=== PATIENT | male | born 1950 | race Caucasian/White ===

== ENCOUNTER 2016-11-05 16:37 | Inpatient (IN) | payer MEDICAID, MEDICARE ==
[~2016-11-05] VITALS: Ht 182.9 cm; Wt 66.8 kg
[~2016-11-05 16:37] MED LIST: ALBU8.5H2 INHALATION; ATOR20TA PO; FURO-128 PO; LISI-608 PO; MULT-1018 PO; OMEG500C PO; OXYC1TAB24 PO; PRE20 PO; REGO40TA PO; SILV20CR4 TP; [UNRECOGNIZED DRUG - OTHER] PO
[2016-11-05 16:52] VITALS: BP 142/54; PULSE 110; RESP 24; O2SAT 97
[2016-11-05] MEDS ORDERED: Ondansetron 2 mg/mL 2 mL Inj ONE (18:29)
[2016-11-05] MEDS: HYDROmorphone 0.5 mg/0.5 mL iSecure Syringe IVPUSH PRN ×2 (18:34→19:30)
[2016-11-05 18:39] LABS: INR 1.3 ratio
[2016-11-05 18:46] LABS: Magnesium 1.8 mg/dL (1.6-2.6)
[2016-11-05 18:51] LABS: Mean Corpuscular Volume 94.1 fL (81-100)
[2016-11-05 18:57] LABS: Platelet Count 7 bil/L (150-400)
[2016-11-05] MEDS ORDERED: Dextrose 10% 250 ML in IV Bag 1 EACH IV ONE ×2 (19:00→19:45)
[2016-11-05 19:04] LABS: BASOPHILS % (AUTO) 0 % (0-3); EOSINOPHILS % (AUTO) 0 % (0-5); MONOCYTES % (AUTO) 0 % (4-12); NEUTROPHILS % (AUTO) 64 % (40-74)
[2016-11-05] MEDS ORDERED: Pantoprazole Inj 80 MG, Pharmacy To Mix 1 EA in 0.9% Sodium Chloride 80 ML IV ONE ×2 (19:05)
[2016-11-05] MEDS ORDERED: Pantoprazole 4 mg/mL 10 mL Inj IVPUSH ONE (19:05)
[2016-11-05] MEDS ORDERED: Dextrose 5% 0.9% NaCl 1,000 ML IV SCH ×2 (19:05→23:30)
[2016-11-05] MEDS ORDERED: Octreotide Inj 500 MCG in 0.9% Sodium Chloride 100 ML IV ONE (19:25)
[2016-11-05] MEDS ORDERED: cefTRIAXone Inj 2,000 MG in Dextrose 5% Minibag Plus 50 ML IV ONE (20:00)
--- NOTE | 2016-11-05 20:23 | ED.REPORT ---
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 Patient is accompanied by his daughter Cheyanne, his municipal firefighter. She states that she took the patient to urgent care this morning and then to see urologist this morning as his argueta catheter was not draining urine since last night. Dr. Fields performed cystourethroscopy that revealed non-distended bladder. He was referred to the ED. Patient is very weak to carry on a conversation, but he stated that he has severe diffuse abdominal pain since this afternoon and that he started spitting out blood since admission to ER. He denies hematemesis, hematochezia, melena. He reports shortness of breath and severe weakness. Patient's oncologist is Dr. Olson. From his last note on 10/29/16, patient has widespread metastasis involving left scapular soft tissue, right anterolateral 7th rib, T10 through L2 spine, left 11th rib, and extensive liver involvement. He has had a week of chemotherapy with Nursing Notes Stated Complaint: ABDOMINAL PAIN Chief Complaint: Male Abdominal Pain Nursing Notes Reviewed: Yes Allergies: Coded Allergies: No Known Allergies (Unverified , 11/05/16) Scheduled ([nutra blast supp]) 1 DOSE PO QAM Atorvastatin (Lipitor) 20 Mg Tablet 10 MG PO QAM Furosemide (Lasix) 40 Mg Tablet 40 MG PO QAM Multivitamin (Multi Vitamin Daily) 1 Each Tablet 1 EACH PO QAM [place]-3 Fatty Acids (Fish Oil) 500 Mg Capsule.dr 500 MG PO QAM Prednisone (PredniSONE) 20 Mg Tablet 40 MG PO QAM Regorafenib (Stivarga) 40 Mg Tablet 160 MG PO DIRECTED take 160mg tablet by mouth daily for the first 21 days of 28 days Silver Sulfadiazine (Silvadene) 20 Gm Cream..g. 1 APPLIC TP Q48H TO FEET Tamsulosin ER (Tamsulosin ER) 0.4 Mg Cap.er.24h 0.4 MG PO QAM oxyCODONE-Acetaminophen 5-325 mg (oxyCODONE-Acetaminophen 5-325 mg) 1 Each Tablet 1 TAB PO Q4H Scheduled PRN Albuterol HFA (Proair HFA) 8.5 Gm Hfa.aer.ad 2 PUFFS INHALATION Q4H PRN PRN For Shortness of Breath General Time Seen by MD: 18:22 Chief Complaint Abdominal pain Hx Obtained From: Patient, Daughter Sudden in Onset?: Yes Onset Occurred: 5 - 8 hours ago Context of Onset: Other (pt is on Regorafenib for stage IV hepatocellular carcinoma) Symptom Duration: Since onset Progression since Onset: Constant Location: : Diffuse Quality: Painful Radiation: : Does not radiate Severity: Current: Severe Severity: Maximum: Severe Recent Healthcare: Recent doctor visit (urology, this morning, seen by Dr. Fields) Risk Factors )( AAA Risk Stratification Hypertension Smoking Risk factors reviewed CAD Risk Stratification Hypertension Smoking Risk factors reviewed Past Medical History Past Medical History Notes: Hypertension Hepatocellular carcinoma, stage IV, with widespread metastasis Smoking History Current Every Day Smoker Social History Alcohol Use: In recovery Drug Use: THC Other Social History: , Lives with children (Daughter: Cheyanne Crowley) Ambulatory Status Walker Review of Systems Constitutional: Reports: Fatigue, Malaise, Weakness - generalized, Denies: Fever Respiratory: Reports: Dyspnea on exertion, Prod cough, bloody, Denies: Wheezing Cardiovascular: Reports: Edema, Denies: Chest pain, Syncope GI: Reports: Abdominal pain, Anorexia, Nausea, Denies: Bloody/tarry stool, Dysphagia, Hematemesis, Hematochezia, Melena, Vomiting Male: Reports Urination decreased Musculoskeletal: Reports: Extremity swelling Physical Exam Initial Vital Signs Vital Signs (First) Date Time Temp Pulse Resp B/P Pulse Ox O2 Delivery O2 Flow Rate FiO2 11/05/16 16:52 36.1 110 24 142/54 97 Room Air Initial VS: Reviewed, Vital signs abnormal (Pulse 110) Alertness: Positive: Confused Appearance / Presentation: Positive: Appears older than age, Cachectic, Frail, In pain, Toxic appearing, Uncomfortable Resp Distress / Stridor: Positive: Speaks phrases Diminished Breath Sounds: Positive: Decreased bilateral Cardiovascular: Regular rhythm Heart Rate / Rhythm: Positive: Tachycardia Lower Ext Edema: Positive: Ankle, Bilateral 3+, Pitting Tenderness/Guarding/Rebound: Positive: Tender diffuse Bowel Sounds / Distention: Positive: Bowel sounds hypoactive, Distention mild Head / Eyes: Atraumatic, Normocephalic, PERRL Conjunctiva / Sclera: Positive: Icteric Mouth: Positive: Mucous membranes dry Color / Condition: Positive: Jaundice present Trauma / Burn / Environmental: Positive: Ecchymosis (upper chest wall (new); bilateral upper extremities (chronic)) Argueta catheter in place PICC in place- right upper arm Interpretation & Diagnostics Lab Results Interpretation Result Diagram: 11/05/16 2315 11/05/16 2315 Test 11/05/16 18:15 11/05/16 19:33 Metamyelocytes % 2% (0-0) Prothrombin Time 14.0sec (8.1-12.5) Prothromb Time International Ratio 1.30ratio Magnesium Level 1.8mg/dL (1.6-2.6) Ammonia 137ug/dL (18-53) Hold Jeter Top Tube Received (Received) CBC Interpretation Platelets low (7) BMP / CMP Interpretation Na low (127), K+ elevated (5.8), Glucose low (28), BUN elevated (93), Creatinine elevated (3.09), ALT (SGPT) elevated (433), AST (SGOT) elevated (573) , Total bilirubin elevated (8.9) Re-Eval/Medical Decision Med Decision/Clinical Course In summary, this is a very critical, 66 year old male with h/o stage IV hepatocellular carcinoma with widespread metastasis who presents to ED in acute renal failure, with severe thrombocytopenia, hypoglycemia and possible upper GI bleeding. Gastroenterology, Dr. Haddad, oncology, Dr. Trevizo, and urology, Dr. Fields consulted. Oncology and GI will see the patient in the morning. Patient has been started on pantoprazole and octreotide drip, dextrose and rocephine IV. Platelets ordered. Patient has been discussed with night hospitalist, Dr. Medina. Patient will be admitted to ICU for further management and treatment. Source of Hx: Old records, Crown Perforator Operator Consultation : Referral / Consult Name: Braden Medina MD Consulted With: Hospitalist Electrical Systems Designer: Will see patient, Agrees with eval, Agrees with plan, Accepts admit Counseled Regarding: Diagnosis, Lab results, Need for admission Discharge & Departure Shift Change Sign-Out Response to Therapy: Unchanged Primary Impression: Thrombocytopenia Additional Impressions: Hypoglycemia GI (gastrointestinal bleed) GI bleed type/associated pathology: unspecified gastrointestinal hemorrhage type Qualified Code: K92.2 - Gastrointestinal hemorrhage, unspecified Hyperkalemia Cancer, hepatocellular Disposition: ADMITTED TO HOSPITAL Vital Signs - All Vital Signs Date Time Temp Pulse Resp B/P Pulse Ox O2 Delivery O2 Flow Rate FiO2 11/05/16 16:52 36.1 110 24 142/54 97 Room Air )( All Prior VS Reviewed: Yes Referrals: Bertin Olson MD (PCP) Crit Care Except Billable Proc Time Spent: 195-224 minutes Services Performed: Patient management by me, Time spent at bedside, Reviewing test results, Reviewing imaging, Discussing patient care, Documentation in record, Time with fam/surrogate EDSupervising Provider for APC: Gibson Rebollar DO Attending Statement I personally took a history of perform serial examinations and spoke with Mr. Crowley myself. He is critically ill. He has multiple life-threatening conditions. After discussing options with him he opted to have aggressive treatment. Therefore we will infuse proton pump inhibitor, platelets and IV fluids. Plan to admit to the ICU. We have consulted with gastroenterology as well as the hospitalist service. He is admitted in critical condition. copies to: Bertin Olson MD, Oksana S DO November 05, 2016 20:23 Beatriz Mobley November 05, 2016 21:15 Gibson Rebollar DO November 06, 2016 18:25 Calcium Level 8.2mg/dL (8.5-10.1) Magnesium Level 1.8mg/dL (1.6-2.6) Total Bilirubin 8.9mg/dL (0.0-1.2) Aspartate Amino Transf (AST/SGOT) 513U/L (0-50) Alanine Aminotransferase (ALT/SGPT) 433U/L (0-44) Alkaline Phosphatase 935U/L (25-160) Total Protein 5.7g/dL (6.4-8.4) Albumin 2.2g/dL (3.4-5.0) Hemoglobin 10.3g/dL (13.8-17.2) Hematocrit 30.8% (41.0-50.0) Ammonia 137ug/dL (18-53) Hold Jeter Top Tube Received (Received) CBC Interpretation Platelets low (7) BMP / CMP Interpretation Na low (127), K+ elevated (5.8), Glucose low (28), BUN elevated (93), Creatinine elevated (3.09), ALT (SGPT) elevated (433), AST (SGOT) elevated (573) , Total bilirubin elevated (8.9) Re-Eval/Medical Decision Med Decision/Clinical Course In summary, this is a very critical, 66 year old male with h/o stage IV hepatocellular carcinoma with widespread metastasis who presents to ED in acute renal failure, with severe thrombocytopenia, hypoglycemia and possible upper GI bleeding. Gastroenterology, Dr. Haddad, oncology, Dr. Trevizo, and urology, Dr. Fields consulted. Oncology and GI will see the patient in the morning. Patient has been started on pantoprazole and octreotide drip, dextrose and rocephine IV. Platelets ordered. Patient has been discussed with night hospitalist, Dr. Medina. Patient will be admitted to ICU for further management and treatment. Source of Hx: Old records, Crown Perforator Operator Consultation : Referral / Consult Name: Braden Medina MD Consulted With: Hospitalist Electrical Systems Designer: Will see patient, Agrees with eval, Agrees with plan, Accepts admit Counseled Regarding: Diagnosis, Lab results, Need for admission Discharge & Departure Shift Change Sign-Out Response to Therapy: Unchanged Primary Impression: Thrombocytopenia Additional Impressions: Hypoglycemia GI (gastrointestinal bleed) GI bleed type/associated pathology: unspecified gastrointestinal hemorrhage type Qualified Code: K92.2 - Gastrointestinal hemorrhage, unspecified Hyperkalemia Cancer, hepatocellular Disposition: ADMITTED TO HOSPITAL Vital Signs - All Vital Signs Date Time Temp Pulse Resp B/P Pulse Ox O2 Delivery O2 Flow Rate FiO2 11/05/16 16:52 36.1 110 24 142/54 97 Room Air )( All Prior VS Reviewed: Yes Referrals: Bertin Olson MD (PCP) Crit Care Except Billable Proc Time Spent: 195-224 minutes Services Performed: Patient management by me, Time spent at bedside, Reviewing test results, Reviewing imaging, Discussing patient care, Documentation in record, Time with fam/surrogate EDSupervising Provider for APC: Gibson Rebollar DO copies to: Bertin Olson MD, Oksana S DO November 05, 2016 20:23 Beatriz Mobley November 05, 2016 21:15
[2016-11-05] MEDS ORDERED: 0.9% Sodium Chloride 250 ML IV ONE (20:40)
[2016-11-05 21:15] VITALS: BP 108/58; PULSE 109; RESP 18
[2016-11-05] MEDS ORDERED: HYDROmorphone PCA 0.2 mg/mL 30 mL Inj - Standard IV PRN (21:15)
[2016-11-05 21:30] VITALS: BP 98/64; PULSE 116; RESP 16; O2SAT 94
[2016-11-05] MEDS ORDERED: TAMS0.4C29 PO (21:31)
[2016-11-05] MEDS ORDERED: Senna-Docusate 8.6-50 mg Tablet PO PRN (21:35)
[2016-11-05] MEDS ORDERED: Alum-Mag Hydrox-Simeth 30 mL Suspension PO PRN (21:35)
[2016-11-05] MEDS ORDERED: Ondansetron 2 mg/mL 2 mL Inj IVPUSH PRN (21:35)
[2016-11-05] MEDS ORDERED: Polyethylene Glycol (PEG) 17 Gm Powder PO PRN (21:35)
[2016-11-05 22:39] VITALS: BP 105/64; PULSE 112; RESP 18; O2SAT 94
--- NOTE | 2016-11-05 22:47 | PCM.HPMED ---
Subjective Date of Service November 05, 2016 Primary Provider: Admitting Physician: Braden Medina MD Primary Care Physician: Bertin Olson MD Attending Physician: Braden Medina MD Chief Complaint: Abdominal pain History of Present Illness: Mr. Fercho Crowley is a 66-year-old gentleman presenting today with complaints of severe abdominal pain. He is accompanied by his daughter Ana Edward who currently lives with him as well as primary caregiver. He has significant past medical history of history of stage IV hepatocellular carcinoma and widespread bony and soft tissue metastasis with progression of liver and bone disease currently being treated with chemotherapy(Regorafenib), and prednisone 40 mg. As of oncology notes 10/08/2016 Metastatic hepatocellular carcinoma with scapular and soft tissue involvement, recent imaging showed right anterior lateral seventh rib, T10 through L2 and left 11th rib involvement. Disease liver is progressing and also in the ribs. Patient has received several rounds of radiation therapy in the past. . He has been struggling with thrombocytopenia with treatment using prednisone initially 10 mg daily. Oncology was awaiting improvement of hematologic parameters and was planning on starting gemcitabine plus pegylated liposomal doxorubicin.Current chemotherapy regimen so far as one week of Regorafanib 160 mg, and current prednisone dose of 40 mg daily. Patient is extremely weak and unable to answer questions or carry on conversation, and the story is filled in by his daughter and CHASIDY Cheyanne. She states that he was diagnosed with hepatocellular carcinoma 2014 and since has received multiple rounds of directed radiation therapy and chemotherapy. He has had a particularly difficult time controlling platelet count and pain. Cheyanne states that she took the patient to the urgent care this morning (11/04/16) and then to see the urologist since the patient's chronic Fountain catheter was not draining urine for a day. Cystourethroscopy performed by Dr. Fields revealed a nondistended bladder, at which point he was referred to the emergency department at [facility]. Of note patient's daughter also reported that yesterday Mr. 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 Since admission he has complained mainly of severe diffuse abdominal pain that has persisted since late yesterday afternoon (11/04/16), jaundice and scleral icterus noted by daughter around the same time yesterday. Shortly after arriving in the emergency department patient had spitting episodes with dark blood present. Patient's daughter denies nausea, vomiting, fever, chills, chest pain, constipation, diarrhea. In the emergency department patient's temperature was 31.6, pulse 110, respiratory rate 24, blood pressure 142/54, pulse ox 97 on room air. Significant labs were multiple electrolyte abnormalities sodium 127, potassium 5.8, chloride 85, CO2 10, BUNs 93, creatinine 3.09, glucose 28, calcium 8.2, magnesium 1.8, total bili 8.9, AST/ALT 513/433, ammonia 137, total protein 5.7, white count normal 7.9, hemoglobin 11.4, platelets 7, band neutrophils 34. PT/ INR 14/1.3. Oncology was contacted and recommended transfusing platelets and packed red cells if necessary, Gastroenterology recommended Protonix drip and octreotide drip with transfusions as necessary, urology signed off. Patient was admitted to the ICU. Review of Systems: Constitutional: Reports: Fatigue, Malaise, Weakness - generalized, Denies: Fever Respiratory: Reports: Dyspnea on exertion, Prod cough, bloody, Denies: Wheezing Cardiovascular: Reports: Edema, Denies: Chest pain, Syncope GI: Reports: Abdominal pain, Anorexia, Nausea, Denies: Bloody/tarry stool, Dysphagia, Hematemesis, Hematochezia, Melena, Vomiting Male: Reports Urination decreased Musculoskeletal: Reports: Extremity swelling Allergies Coded Allergies: No Known Allergies (Unverified , 11/05/16) Home Medications Albuterol HFA daily Atorvastatin 10 mg daily Lasix 40 mg daily Recently discontinued lisinopril hydrochlorothiazide 20/25 milligrams daily Prednisone 40 mg daily Regorafanib 160 mg daily Oxycodone acetaminophen 5/325 Q 4H pain PRN PMH Hepatocellular carcinoma Asthma Hypertension Hyperlipidemia Surgical History Patient unable to respond appropriately to questions. Family History Patient unable to respond appropriately to questions. Social History Hx Alcohol Use: Yes (sober for 25 years) Hx Substance Use: No Hx Tobacco Use: Yes (currently half a pack but has significant pack per day smoking history since the age of 4) Smoking Status: Current Every Day Smoker Living Arrangement: with Family Exam Vital Signs Vital Sign - Last Date Time Temp Pulse Resp B/P Pulse Ox O2 Delivery O2 Flow Rate FiO2 11/05/16 16:52 36.1 110 24 142/54 97 Room Air Exam General: Pt lethargic laying in bed. Well-developed. Thin. Inappropriately interactive, slow to respond. HEENT: Normocephalic, atraumatic. External ears without defect. Pupils equal, round, responsive to light, scleral icterus present, not pinpoint or dilated. Oropharynx free of erythema with moist mucosa. Cardiovascular: Mildly tachycardic rate with normal rhythm with no murmurs, rubs , or gallops appreciated Pulmonary: Clear to auscultation bilaterally with no crackles, wheezes, or rhonchi. Mildly increased respiratory effort with some use of accessory muscles. Abdomen: Bowel tones present. Soft, fluid wave present, diffusely tender to palpation, mildly distended. Abdomen too tender to assess Hepatosplenomegaly or masses. Extremities: No clubbing, cyanosis, edema, or lymphadenopathy appreciated. Skin: Normal temperature, skin turgor low, and texture; widespread ecchymotic lesions, dusky appearing and places, jaundice, no rash, ulcers, or subcutaneous nodules appreciated. Neurological: Cranial nerves not adequately assessed due to patient's mentation and fatigue. Psychiatric: Abnormal and mood and affect patient is very fatigued. Alert and oriented to person, place and time not entirely oriented. Lab and Diagnostics Result Diagram: 11/05/16193211/05/161814 Assessment & Plan Mr. Fercho Crowley is a very critical, 66 year old male with h/o stage IV hepatocellular carcinoma with widespread metastasis who presents to ED in acute renal failure, with severe thrombocytopenia, hypoglycemia and possible upper GI bleeding. For now patient's vital signs remained stable. Gastroenterology, Dr. Haddad, oncology, Dr. Trevizo, and urology, Dr. Fields consulted. Oncology and GI will see the patient in the morning. Patient and daughter have decided to switch to comfort care. Acute GI (gastrointestinal bleed), present on admission. Active. - Dr. Haddad aware of patient, she has been counseled and they recommend the following interventions: - Likely secondary to progression of hepatocellular carcinoma. - NPO - IV pantoprazole - IV octreotide - Hemoglobin is currently stable but trending downward, @ 1814 - 11.4, @ 1932 down to 10.3 - Continue to follow H&H closely will transfuse for hemoglobin below 7, will recheck with platelets. Thrombocytopenia, present on admission. Active. - Platelets on admission were 7. - Patient is currently receiving chemotherapy Regorafanib 160 mg, managed by Dr. Larkin in oncology, and currently one week into therapy. - Cross and match, 4 units platelets ordered. - Home prednisone 40 mg daily is roughly equivalent to 30 mg Methylpred IV, will start tomorrow a.m. - We will recheck one hour following for unit platelet infusion. Cancer, hepatocellular stage IV, present on admission. Active. - Total bili 8.9, AST/ALT 513/433, alkaline phosphatase 935, ammonia 137. - Patient has a diagnosis of stage IV hepatocellular carcinoma with multiple bony metastasis. Will continue to Review outpatient notes thoroughly. - Started on Regorafanib 160 mg one week ago, with Dr. Olson managing with oncology. - Patient is an significant abdominal pain, with ascites and recent onset jaundice. - Dilaudid PSYCHIATRIC NURSING AIDE low-dose started. - Highly recommend palliative consult tomorrow. Hypoglycemia, present on admission. Active. - Glucose on admission was 28 @1815, and current bedside glucose stick was measured 78 @ ~2130 - Continue IV fluids with D5. - Avoid bedside glucose checks, all checks should come from existing lines. Acute Kidney Injury, present on admission. Active. - Patient saw Dr. Fields, who performed a cystourethroscopy which was negative. Consider further imaging for other possible etiologies. - Differential diagnosis includes: Progression of metastatic disease, intravascular depletion, postrenal obstruction. - Creatinine on admission 3.09, 7 days prior 1.11. - Continue IV fluids D5NS @ 100 ml/hr. - Consider nephrology consult tomorrow. Multiple electrolyte abnormalities, present on admission. Active. - DDx: tumor lysis syndrome, renal failure, - Sodium 127 - Potassium 5.8 - Chloride 85 - Carbon dioxide 10 - Calcium 8.2 - Phosphorous ordered. - Uric Acid ordered. Hyperkalemia, present on admission. Active. - DDx: tumor lysis syndrome, Renal failure. - Potassium on admission was 5.8. - Telemetry. Ascites, present on admission. Active. - Likely secondary to progression of hepatocellular carcinoma. - We will order diagnostic ultrasound for Ability. - Consider therapeutic/diagnostic paracentesis. - We will consider adding albumin 25 g. - Holding home lasix 40mg daily - We will start Rocephin IV. - Bandemia - ddx: Possibly spontaneous bacterial peritonitis. - IV Rocephin ordered. - White blood cell count normal however neutrophilic bands at 30%. Social: - Spoke with daughter (CHASIDY) extensively regarding patient's prognosis. She is adamant that patient is full code at this point. Patient's daughter mentioned that before starting chemotherapy that in the event chemotherapy failed patient wished to start with dignity application process. Patient remains too weak to even discuss these conditions, implications and risks of care, and prognosis. Patient's daughter Cheyanne stated that she would prefer her father to be groggy and out of it and pain-free and aware of the pain and lucid. She is aware that balancing high dose pain medications with his cancer pain is difficult and that these medications can cause potentially lethal respiratory depression. Acetaminophen for mild pain when necessary. Bowel regimen Senna and MiraLAX scheduled and PRN. Zofran when necessary for nausea and vomiting. SubQ heparin held for now. SCDs also held due to extremely low platelets. High-risk medications: IV Dilaudid PSYCHIATRIC NURSING AIDE ICU: ABG: N/A I/Os: Lines: PICC line roughly 2 months old in the right axilla, 2 peripheral lines in the upper extremities placed in the ED. Fountain in place. No port a cath present Drips: Pantoprazole, octreotide. Disposition: Patient has been admitted to the ICU and is likely here for greater than 2 per nights. His discharge is dependent upon many factors including platelets, blood sugar, functional status, pain. Discharge home when medically stable, currently considering hospice with no decision at this time. Pain Evaluation: Pain not Controlled (he cannot) Resuscitation Status: CPR: Attempt Resuscitation Time spent 1 hour critical time spend Attending Statement The patient was seen and examined together with Dr. Caruso on 11/05 and I agree with the history, exam and plan as outlined in the note above. BARRON CARUSO DO November 05, 2016 21:46 Braden Medina MD November 06, 2016 00:56
[2016-11-05 23:00] VITALS: BP 117/57; PULSE 105; RESP 18; O2SAT 94
[2016-11-05] MEDS ORDERED: Dextrose 10% 250 ML IV ONE (23:27)
[2016-11-05 23:28] LABS: Mean Corpuscular Volume 94.5 fL (81-100)
[2016-11-05 23:29] LABS: Mean Corpuscular Hemoglobin 31.6 pg (27.0-35.0)
[2016-11-05 23:30] LABS: Platelet Count 19 bil/L (150-400)
[2016-11-05] MEDS ORDERED: Dextrose 10% 250 ML IV PRN (23:35)
[2016-11-05 23:45] LABS: BASOPHILS % (AUTO) 0.8 % (0-3); EOSINOPHILS % (AUTO) 1.4 % (0-5); MONOCYTES % (AUTO) 0.6 % (4-12); NEUTROPHILS % (AUTO) 71.9 % (40-74)
[2016-11-05] MEDS ORDERED: 0.9% Sodium Chloride 250 ML IV SCH (23:55)
--- NOTE | 2016-11-06 | NUR ---
CCU admission Pt arrived from ER to CCU # 2018 approx at 2230. Upon arrival pt was receiving Plat. Pt has bruises on his chest, arms, and legs. BG was 24. Pt was drowsy but arousable. D10 bolus given. BG = 78. Protonix gtt and octeriotide gtt infusing.
[2016-11-06 01:00] VITALS: BP 82/50; PULSE 100; RESP 18
[2016-11-06 01:15] VITALS: BP 83/52; PULSE 99; RESP 18
[2016-11-06] MEDS ORDERED: 0.9% Sodium Chloride 1,000 ML IV ONE (01:30)
[2016-11-06] MEDS ORDERED: Atropine 1% 5 mL Ophthalmic Solution PO PRN (02:15)
[2016-11-06] MEDS ORDERED: Morphine 100 mg/100 mL NS 100 MG in IV Premix 1 EACH IV SCH (02:15)
[2016-11-06 03:00] VITALS: BP 83/61; PULSE 96; RESP 18; O2SAT 92
--- NOTE | 2016-11-06 06:01 | PCM.DC.MEX ---
Discharge Summary Date of Service November 06, 2016 Dates of Hospitalization Date of Hospital Admission November 05, 2016 at 20:55 Date of Expiration: November 06, 2016 Time of Expiration: 05:34 Providers: Admitting Physician: Braden Medina MD Primary Care Physician: Bertin Olson MD Attending Physician: Braden Medina MD Diagnosis at Time of Advanced Hepatocellular carcinoma, Stage IV. Additional Diagnosis Acute GI (gastrointestinal bleed), present on admission. Active. Thrombocytopenia, present on admission. Active. Cancer, hepatocellular stage IV, present on admission. Active. Hypoglycemia, present on admission. Active. Acute Kidney Injury, present on admission. Active. Multiple electrolyte abnormalities, present on admission. Active. Hyperkalemia, present on admission. Active. Ascites, present on admission. Active. Acute Bandemia, present on admission. Active. Consultations Gastroenterology Oncology Brief History Mr. Fercho Crowley is a 66-year-old gentleman presenting today with complaints of severe abdominal pain. He is accompanied by his daughter Ana Edward who currently lives with him as well as primary caregiver. He has significant past medical history of history of stage IV hepatocellular carcinoma and widespread bony and soft tissue metastasis with progression of liver and bone disease currently being treated with chemotherapy(Regorafenib), and prednisone 40 mg. As of oncology notes 10/08/2016 Metastatic hepatocellular carcinoma with scapular and soft tissue involvement, recent imaging showed right anterior lateral seventh rib, T10 through L2 and left 11th rib involvement. Disease liver is progressing and also in the ribs. Patient has received several rounds of radiation therapy in the past. . He has been struggling with thrombocytopenia with treatment using prednisone initially 10 mg daily. Oncology was awaiting improvement of hematologic parameters and was planning on starting gemcitabine plus pegylated liposomal doxorubicin.Current chemotherapy regimen so far as one week of Regorafanib 160 mg, and current prednisone dose of 40 mg daily. Patient is extremely weak and unable to answer questions or carry on conversation, and the story is filled in by his daughter and CHASIDY Edward. She states that he was diagnosed with hepatocellular carcinoma 2014 and since has received multiple rounds of directed radiation therapy and chemotherapy. He has had a particularly difficult time controlling platelet count and pain. Cheyanne states that she took the patient to the urgent care this morning (11/04/16) and then to see the urologist since the patient's chronic Fountain catheter was not draining urine for a day. Cystourethroscopy performed by Dr. Fields revealed a nondistended bladder, at which point he was referred to the emergency department at [facility]. Of note patient's daughter also reported that yesterday Mr. 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 Since admission he has complained mainly of severe diffuse abdominal pain that has persisted since late yesterday afternoon (11/04/16), jaundice and scleral icterus noted by daughter around the same time yesterday. Shortly after arriving in the emergency department patient had spitting episodes with dark blood present. Patient's daughter denies nausea, vomiting, fever, chills, chest pain, constipation, diarrhea. In the emergency department patient's temperature was 31.6, pulse 110, respiratory rate 24, blood pressure 142/54, pulse ox 97 on room air. Significant labs were multiple electrolyte abnormalities sodium 127, potassium 5.8, chloride 85, CO2 10, BUNs 93, creatinine 3.09, glucose 28, calcium 8.2, magnesium 1.8, total bili 8.9, AST/ALT 513/433, ammonia 137, total protein 5.7, white count normal 7.9, hemoglobin 11.4, platelets 7, band neutrophils 34. PT/ INR 14/1.3. Oncology was contacted and recommended transfusing platelets and packed red cells if necessary, Gastroenterology recommended Protonix drip and octreotide drip with transfusions as necessary, urology signed off. Patient was admitted to the ICU. Hospital Course Mr. Fercho Crowley is a very critical, 66 year old male with h/o stage IV hepatocellular carcinoma with widespread metastasis who presents to ED in acute renal failure, with severe thrombocytopenia, hypoglycemia and possible upper GI bleeding. For now patient's vital signs remained stable. Gastroenterology, Dr. Haddad, oncology, Dr. Trevizo, and urology, Dr. Fields consulted. Oncology and GI will see the patient in the morning. Refer to H&P for further details. After receiving two rounds of platelets, Dilaudid [employer] with minimal relief of pain, patient and daughter decided to switch to comfort care. Exam Test 11/05/16 18:15 11/05/16 19:33 11/05/16 22:47 11/05/16 23:15 Metamyelocytes % 2% (0-0) Prothrombin Time 14.0sec (8.1-12.5) Prothromb Time International Ratio 1.30ratio Magnesium Level 1.8mg/dL (1.6-2.6) Ammonia 137ug/dL (18-53) Hold Jeter Top Tube Received (Received) Phosphorus Level 8.0mg/dL (2.5-4.9) White Blood Count 5.1th/mm3 (3.8-10.1) Corrected White Blood Count 4.7th/mm3 (3.8-10.1) Red Blood Count 3.07mil/mm3 (4.40-5.80) Hemoglobin 9.7g/dL (13.8-17.2) Hematocrit 29.0% (41.0-50.0) Mean Corpuscular Volume 94.5fL (81-100) Mean Corpuscular Hemoglobin 31.6pg (27.0-35.0) Mean Corpuscular Hemoglobin Concent 33.4% (32.0-37.0) Red Cell Distribution Width 21.1% (12.3-15.4) Platelet Count 19bil/L (150-400) Neutrophils (%) (Auto) 71.9% (40-74) Lymphocytes (%) (Auto) 6.9% (14-46) Monocytes (%) (Auto) 0.6% (4-12) Eosinophils (%) (Auto) 1.4% (0-5) Basophils (%) (Auto) 0.8% (0-3) Band Neutrophils % 18% (1-5) Nucleated Red Blood Cells 9/100 WBC (0-24) Hematology Comments Sodium Level 124mEq/L (134-144) Potassium Level 6.1mEq/L (3.5-5.2) Chloride Level 86mEq/L (97-108) Carbon Dioxide Level 10mmol/L (18-29) Blood Urea Nitrogen 94mg/dL (8-27) Creatinine 3.27mg/dL (0.76-1.27) Estimat Glomerular Filtration Rate 20mL/min (>59) Glucose Level 24mg/dL (60-99) Uric Acid 14.8mg/dL (2.6-7.2) Calcium Level 7.5mg/dL (8.5-10.1) Total Bilirubin 9.1mg/dL (0.0-1.2) Aspartate Amino Transf (AST/SGOT) 582U/L (0-50) Alanine Aminotransferase (ALT/SGPT) 485U/L (0-44) Alkaline Phosphatase 897U/L (25-160) Total Protein 5.1g/dL (6.4-8.4) Albumin 2.3g/dL (3.4-5.0) Attending Statement The patient was seen and examined together with Dr. Caruso on 11/06 and I agree with the history, exam and plan as outlined in the note above. copies to: Bertin Olson MD, COREY P DO November 06, 2016 06:01 Braden Medina MD November 06, 2016 06:35 Potassium Level 6.1mEq/L (3.5-5.2) Chloride Level 86mEq/L (97-108) Carbon Dioxide Level 10mmol/L (18-29) Blood Urea Nitrogen 94mg/dL (8-27) Creatinine 3.27mg/dL (0.76-1.27) Estimat Glomerular Filtration Rate 20mL/min (>59) Glucose Level 24mg/dL (60-99) Uric Acid 14.8mg/dL (2.6-7.2) Calcium Level 7.5mg/dL (8.5-10.1) Total Bilirubin 9.1mg/dL (0.0-1.2) Aspartate Amino Transf (AST/SGOT) 582U/L (0-50) Alanine Aminotransferase (ALT/SGPT) 485U/L (0-44) Alkaline Phosphatase 897U/L (25-160) Total Protein 5.1g/dL (6.4-8.4) Albumin 2.3g/dL (3.4-5.0) BARRON CARUSO DO November 06, 2016 06:01
--- NOTE | 2016-11-06 07:38 | NUR ---
Expiration Providers talked to pt and daughter extensively about prognosis. Pt and daughter agreed to comfort care. Pt stated Im tired of fighting cancer and ready to . Pt was downgraded and comfort care orders initiated. Morphine gtt initiated for comfort. Pt appeared comfortable on 5 mg /hr. Pt VS ceased at 0534. Provider notified. Donor Referral Services notified. Spoke to Margot. Pt is not candidate for organ donation but possible for cornea and tissue. Referral # [id number]. Awaiting call back from tissue center. [facility] office notified. [facility] # [id number]. Family requested to talk to regarding aid available for cremation. Familt stated cannot afford it. phone numbers provided to family and notified battery charger to f/u.
== END 2016-11-06 05:34 | disposition expired | DRG 377 ==
LOC: SED 16:37 → CCU 20:55 → PCC 11-06 02:00
PROVIDERS: ADMIT Hospitalist; ATTEND Hospitalist
PROC: 30233R1 Transfusion of Nonautologous Platelets into Peripheral Vein, Percutaneous Approach (ICD-10-PCS; principal; 2016-11-05)
DX: K92.2 Gastrointestinal hemorrhage, unspecified (principal); E88.3 Tumor lysis syndrome; C22.0 Liver cell carcinoma; C79.51 Secondary malignant neoplasm of bone; C79.89 Secondary malignant neoplasm of other specified sites; N17.9 Acute kidney failure, unspecified; D69.6 Thrombocytopenia, unspecified; E87.5 Hyperkalemia; E16.2 Hypoglycemia, unspecified; I10 Essential (primary) hypertension; F17.200 Nicotine dependence, unspecified, uncomplicated; J45.909 Unspecified asthma, uncomplicated; T45.1X5A Adverse effect of antineoplastic and immunosuppressive drugs, initial encounter; Z51.5 Encounter for palliative care; Z79.51 Long term (current) use of inhaled steroids